=== PATIENT | female | born 1960 | race Caucasian/White ===

== ENCOUNTER 2016-08-10 21:21 | Emergency (ER) | payer SELFPAY ==
[2016-08-10 21:31] VITALS: BP 164/101
[2016-08-10] MEDS ORDERED: IPRATROPIUM/ALBUTEROL 0.5-2.5 MG/3 ML AMPUL NEB ONE ×3 (21:31→21:38)
[2016-08-10] MEDS ORDERED: METHYLPREDNISOLONE INJ 125 MG/2 ML SDV IV ONE (21:31)
[2016-08-10] MEDS ORDERED: IPRATROPIUM BROMIDE 0.02% NEB 0.5 MG/2.5 ML AMPUL NEB ONE (21:34)
[2016-08-10] MEDS ORDERED: ALBUTEROL SULFATE 0.083% NEB 2.5 MG/3 ML AMPUL NEB ONE (21:34)
[2016-08-10] MEDS ORDERED: MAGNESIUM SULFATE/D5W 100 ML IV PRN (21:39)
[2016-08-10] MEDS ORDERED: NORMAL SALINE 1000 ML 500 ML IV ONE (21:39)
--- NOTE | 2016-08-10 21:43 | ER Document Report ---
ED Respiratory Problem - General Chief Complaint: Respiratory Distress Stated Complaint: TROUBLE BREATHING Time Seen by Provider: 08/10/16 21:35 Notes: Patient is a 56 year old female that comes to the ED for chief complaint of worsening difficulty breathing. Patient has a history of COPD, she continues to smoke, she is on 2 L nasal cannula at all times. However she does not have portable oxygen and during her trip to the emergency department she became increasingly short of breath and was found initially to have a pulse oxygenation of 78%. Patient denies any new cough, fevers, chest pain, vomiting. She did take a couple treatments today but states she felt like she was worsening. She denies history of intubation. TRAVEL OUTSIDE OF THE [place] IN LAST 30 DAYS: No - Related Data Allergies/Adverse Reactions: No Known Allergies Allergy (Unverified 11/18/15 23:05) Past Medical History - General Information source: Patient - Social History Smoking Status: Current Every Day Smoker Smoking Education Provided: Yes - <3 min Frequency of alcohol use: None Drug Abuse: None Lives with: Family Family History: Reviewed & Not Pertinent Patient has suicidal ideation: No Patient has homicidal ideation: No - Past Medical History Cardiac Medical History: Reports: Hx Atrial Fibrillation, Hx Congestive Heart Failure, Hx Coronary Artery Disease Pulmonary Medical History: Reports: Hx COPD - Patient is O2 dependent Renal/ Medical History: Denies: Hx Peritoneal Dialysis Psychiatric Medical History: Reports: Hx Depression Infectious Medical History: Reports: Hx MRSA Past Surgical History: Reports: Hx Breast Surgery, Hx Section, Hx Tonsillectomy - Immunizations Hx Diphtheria, Pertussis, Tetanus Vaccination: Yes Review of Systems - Review of Systems Constitutional: No symptoms reported EENT: No symptoms reported Cardiovascular: No symptoms reported Respiratory: See HPI Gastrointestinal: No symptoms reported Genitourinary: No symptoms reported Female Genitourinary: No symptoms reported Musculoskeletal: No symptoms reported Skin: No symptoms reported Hematologic/Lymphatic: No symptoms reported Neurological/Psychological: No symptoms reported Physical Exam - Vital signs Vitals: Temp Pulse Resp BP Pulse Ox 98.2 F 76 24 H 164/101 H 74 L 08/10/16 21:26 08/10/16 21:26 08/10/16 21:26 08/10/16 21:26 08/10/16 21:26 Interpretation: Normal - General General appearance: Anxious In distress: None - HEENT Head: Normocephalic, Atraumatic Eyes: Normal Conjunctiva: Normal Extraocular movements intact: Yes Eyelashes: Normal Pupils: PERRL Mouth/Lips: Normal Mucous membranes: Normal Pharynx: Normal Neck: Normal - Respiratory Respiratory status: Respiratory distress - mild, Labored, Tachypnea Chest status: Nontender Breath sounds: Decreased air movement, Wheezing Chest palpation: Normal - Cardiovascular Rhythm: Regular Heart sounds: Normal auscultation Murmur: No - Abdominal Inspection: Normal Distension: No distension Bowel sounds: Normal Tenderness: Nontender. No: Tender, Guarding Organomegaly: No organomegaly - Back Back: Normal, Nontender - Extremities General upper extremity: Normal inspection, Nontender, Normal color, Normal ROM , Normal temperature General lower extremity: Normal inspection, Nontender, Normal color, Normal ROM , Normal temperature, Normal weight bearing. No: Gamal's sign - Neurological Neuro grossly intact: Yes Cognition: Normal Orientation: AAOx4 Kwaku Coma Scale Eye Opening: Spontaneous Kwaku Coma Scale Verbal: Oriented Kwaku Coma Scale Motor: Obeys Commands Kwaku Coma Scale Total: 15 Speech: Normal Motor strength normal: LUE, RUE, LLE, RLE Sensory: Normal - Psychological Associated symptoms: Anxious - Skin Skin Temperature: Warm Skin Moisture: Dry Skin Color: Normal Course - Re-evaluation Re-evalutation: Patient initially with tachypnea, decreased breath sounds, wheezing. No hypoxia on 2 L nasal cannula. No fever. Chest x-ray is unremarkable. On reevaluation patient is much improved, she is slightly shaky from albuterol but wheezing resolved and patient is moving air much better. She states that she feels she is back to her normal baseline. Patient is asking if she can leave. Patient provided with an inhaler here, prescription and refills, however she states she is not sure she can afford some other refills, she does not have a portable oxygen tank (which she needs). Referral was placed, case work aide consult placed, patient is still asking to leave with her son. Patient ambulated and did very well with no hypoxia unless she was taken off oxygen. She is averaging 95-98% while I was in the room. Patient states she lives just down the road and will get back on oxygen as soon as she gets home. Discussed return precautions in detail, patient and son state understanding and agreement. Discussed smoking cessation, patient states agreement and that she will. - Vital Signs Vital signs: Temp Pulse Resp BP Pulse Ox 98.2 F 76 24 H 164/101 H 74 L 08/10/16 21:26 08/10/16 21:26 08/10/16 21:26 08/10/16 21:26 08/10/16 21:26 Discharge - Discharge Clinical Impression: COPD exacerbation, Shortness of breath Condition: Stable Disposition: HOME, SELF-CARE Additional Instructions: Your chest x-ray does not show any concerning abnormalities. Use the albuterol if needed, take the prednisone as prescribed We have a case work aide consult placed, they will be contacting you at the information you provided. Also follow-up with the primary care referral was placed. Stop smoking. Return to emergency department for any concerning or worsening symptoms including return or worsening shortness of breath, fever, or any other concerning symptoms. Prescriptions: Albuterol Sulfate [Proair HFA Inhalation Aerosol 8.5 gm MDI] 2 puff IH Q4H PRN # 1 mdi PRN Reason: Budesonide/Formoterol Fumarate [Symbicort Hfa 160-4.5 Mcg Inhaler 6 gm] 1 puff IH Q12 #1 inhaler Prednisone 20 mg PO DAILY #15 tablet Forms: Smoking Cessation Education Referrals: [facility] [Provider Group] - Follow up as needed [facility] [Provider Group] - Follow up as needed
[2016-08-10] MEDS ORDERED: ALBUTEROL SULFATE 0.083% NEB 2.5 MG/3 ML AMPUL NEB SCH (21:46)
[2016-08-10] MEDS ORDERED: LORAZEPAM 0.5 MG TABLET PO ONE (22:18)
--- NOTE | 2016-08-10 22:24 | RADIOLOGY REPORT (SQ) ---
EXAM DESCRIPTION: CHEST SINGLE VIEW COMPLETED DATE/TIME: 08/10/2016 10:04 pm REASON FOR STUDY: respiratory distress COMPARISON: None. NUMBER OF VIEWS: One view. TECHNIQUE: Single frontal radiographic view of the chest acquired. LIMITATIONS: None. FINDINGS: LUNGS AND PLEURA: No opacities, masses or pneumothorax. No pleural effusion. Attenuated bl ood vessels and flattened jessica-diaphragms. MEDIASTINUM AND HILAR STRUCTURES: No masses. Contour normal. HEART AND VASCULAR STRUCTURES: Heart normal in size. Normal vasculature. BONES: No acute findings. HARDWARE: None in the chest. OTHER: No other significant finding. IMPRESSION: COPD. NO ACUTE RADIOGRAPHIC FINDING IN THE CHEST. TECHNICAL DOCUMENTATION: JOB ID: [id number] [employer]- All Rights Reserved
[2016-08-10] MEDS ORDERED: ALBUTEROL SULFATE HFA (90 MCG/PUFF) 8 GM MDI (1 MDI/ER DISP) IH ONE (23:21)
== END 2016-08-11 01:36 | disposition home or self-care (01) ==
LOC: ER 21:21
DX: J44.1 Chronic obstructive pulmonary disease with (acute) exacerbation (principal); F17.210 Nicotine dependence, cigarettes, uncomplicated; Z99.81 Dependence on supplemental oxygen; I48.91 Unspecified atrial fibrillation; I50.9 Heart failure, unspecified; I25.10 Atherosclerotic heart disease of native coronary artery without angina pectoris; Z86.14 Personal history of Methicillin resistant Staphylococcus aureus infection
CPT/HCPCS: 94640 ×2; 99285; 96374; 96375; 71010; J2930; J3475; J7030; J3490; J7620